=== PATIENT | male | born 1960 | race Two or more races ===

== ENCOUNTER 2021-04-14 14:07 | Outpatient (CLI) | payer OTHER | END 2021-04-14 23:59 | disposition home or self-care (01) | LOC: LAB 14:07 | PROVIDERS: ATTEND Specialist | DX: Z01.812 Encounter for preprocedural laboratory examination (principal); Z20.822 Contact with and (suspected) exposure to COVID-19 | CPT/HCPCS: C9803; U0003 ==

== ENCOUNTER 2021-04-18 05:54 | Inpatient (IN) | payer OTHER ==
[~2021-04-18] VITALS: Ht 162.6 cm; Wt 102.1 kg
[2021-04-18 05:45] VITALS: BP 123/85
--- NOTE | 2021-04-18 05:45 | NUR ---
DAY SURGERY PATIENT ARRIVED PRE OP PREPARATION STARTED. Addendum: 04/18/21 at 0730 by CHEIKH FAITH RN PT HERE FOR LEFT SHOULDER TOTAL ARTHROPLASTY WITH DR. GARCIA. admitted to [facility] due to plan to stay overnight per kiln charger.
[2021-04-18] MEDS ORDERED: ANESTHESIA TRAY IN PYXIS 1 EA TRAY MC ONE (05:57)
[2021-04-18] MEDS ORDERED: BACITRACIN 50000 UNITS/VIAL ONE (05:58)
[2021-04-18] MEDS ORDERED: BUPIVACAINE 0.5 % PF 150 MG/30 ML VIAL ONE ×2 (05:58→06:29)
[2021-04-18] MEDS ORDERED: HYDROMORPHONE INJ 2 MG/ML DISP.SYRIN ONE (06:08)
[2021-04-18] MEDS ORDERED: ROCURONIUM BROMIDE 50 MG/5 ML ONE ×2 (06:09→07:04)
[2021-04-18] MEDS ORDERED: MIDAZOLAM HCL 2 MG/2ML VIAL ONE (06:09)
--- NOTE | 2021-04-18 06:15 | NUR ---
PATIENT TAKEN DOWN TO PREOP AREA. ADMISSION ASSESSMENT COMPLETED IN PREOP. 20 GAUGE TO RIGHT AC INITATIOED FLSUHED. PATENT NO S/S OF COMPLICATIONS.
[2021-04-18] MEDS ORDERED: TRANEXAMIC ACID 3,000 MG in SODIUM CHLORIDE IRRIG SOLUTION 70 ML IR ONE (07:00)
[2021-04-18] MEDS ORDERED: FENTANYL PF 100MCG/2ML AMPUL ONE (08:39)
--- NOTE | 2021-04-18 09:30 | NUR ---
MS RN NOTES PT TRANSPORTED TO UNIT BY BED AT THIS TIME S/P LEFT REVERSE TOTAL SHOULDER ARTHROPLASTY. LEFT ARM IN SLING, PRESSURE DRESSING IN PLACE, CLEAN, DRY AND NO BLEEDING NOTED. PT ABLE TO WIGGLE FINGERS, GOOD CIRCULATION NOTED, CAPILLARY REFILL <3SECONDS. PT IS AOX4, DANISH SPEAKING. PT ABLE TO MAKE NEEDS KNOWN. POS SURGERY VS WNL. NO SOB NOTED, NO S/S OF ANY ACUTE DISTRESS, NO C/O PAIN AT THIS TIME. RESPIRATIONS EVEN AND UNLABORED. IV ACCESS IN RAC G#20, INTACT, PATENT AND FLUSHING WELL. SAFETY PRECAUTIONS IN PLACE AND MAINTAIN AT ALL TIMES. BED IN LOWEST LOCK POSITION, SIDE RAILS UPX2, CALL LIGHT AND TABLE WITHIN. WILL CONTINUE TO MONITOR
[2021-04-18] MEDS ORDERED: ATOR10TA PO (10:15)
[2021-04-18] MEDS ORDERED: BENA40TA8 PO (10:15)
[2021-04-18] MEDS ORDERED: SERT50TA PO (10:15)
[2021-04-18] MEDS ORDERED: HYDR25TA4 PO (10:15)
[2021-04-18] MEDS ORDERED: METF-440 PO (10:15)
[2021-04-18 10:30] VITALS: BP 119/78
[2021-04-18] MEDS ORDERED: HYDROMORPHONE 1 MG/1 ML DISP.SYRIN SQ PRN (11:00)
[2021-04-18] MEDS ORDERED: MENTHOL/CETYLPYRD (CEPACOL) 1 LOZ LOZENGE MM PRN (11:00)
[2021-04-18] MEDS ORDERED: NALOXONE HCL 0.4 MG/ML AMPUL IV PRN (11:00)
[2021-04-18] MEDS ORDERED: MAG HYDROX/AL HYDROX/SIMETH 30 ML UDC PO PRN ×2 (11:00→18:30)
[2021-04-18] MEDS ORDERED: MAGNESIUM HYDROXIDE 30 ML UDC PO PRN ×2 (11:00→18:30)
[2021-04-18] MEDS ORDERED: diphenhydrAMINE HCL 25 MG CAPSULE PO PRN (11:00)
[2021-04-18] MEDS ORDERED: CLONIDINE HCL 0.1 MG TABLET PO PRN (11:00)
[2021-04-18] MEDS ORDERED: oxyCODONE IR immediate release 5 MG PO PRN (11:00)
[2021-04-18] MEDS ORDERED: ONDANSETRON HCL/PF 4 MG/2 ML VIAL IVP PRN ×2 (11:00→18:30)
[2021-04-18] MEDS ORDERED: HYDROMORPHONE 1 MG/1 ML DISP.SYRIN IV PRN (11:00)
[2021-04-18] MEDS ORDERED: DULCOLAX 10 MG/SUPP.RECT RC PRN (11:30)
[2021-04-18] MEDS ORDERED: COLACE 250 MG CAPSULE PO PRN (11:30)
[2021-04-18] MEDS ORDERED: SENOKOT 8.6 MG TABLET PO PRN (11:30)
[2021-04-18] MEDS ORDERED: TYLENOL 650 MG TABLET PO PRN (11:30)
[2021-04-18] MEDS: TAMSULOSIN 0.4 MG CAP.SR.24H PO SCH (12:11)
[2021-04-18] MEDS: IV D5/0.45 NACL 1,000 ML IV PRN ×2 (12:15→21:13)
[2021-04-18] MEDS: ANCEF 1 G in IV D5W 50 ML IV SCH ×2 (14:08→23:10)
[2021-04-18 16:00] VITALS: BP 122/87
[2021-04-18] MEDS: DOCUSATE SODIUM 100 MG CAPSULE PO SCH (17:05)
[2021-04-18] MEDS ORDERED: ZOLPIDEM TARTRATE 5 MG TABLET PO PRN (18:30)
[2021-04-18] MEDS ORDERED: *INSULIN REGULAR(HUMULIN R)HUM 100 UNIT/ML VIAL SQ PRN (18:30)
[2021-04-18] MEDS ORDERED: DEXTROSE 50%-WATER 50 ML DISP.SYRIN IV PRN (18:30)
[2021-04-18] MEDS ORDERED: Z GUARD REMEDY 2 OZ OINT TP PRN (18:30)
[2021-04-18] MEDS ORDERED: INSULIN REGULAR, HUMAN 100 UNIT/ML 3 ML VIAL SQ PRN (18:30)
[2021-04-18] MEDS ORDERED: ACETAMINOPHEN 325 MG TABLET PO PRN (18:30)
[2021-04-18] MEDS ORDERED: HYDROCODONE/APAP 5/325MG TABLET PO PRN (18:30)
--- NOTE | 2021-04-18 18:44 | NUR ---
MS RN CLOSING NOTES PT AWAKE IN BED AT THIS TIME. PT REMAINED STABLE THROUGHOUT SHIFT. ALL CARE, NEEDS, MEDICATION AND TREATMENT ADMINISTERED ANTICIPATED PER ORDER. SAFETY PRECAUTIONS IN PLACE AND MAINTAINED AT ALL TIMES. BED IN LOWEST LOCKED POSITION, HOB ELEVATED, SIDE RAILS UP X 2. CALL LIGHT AND TABLE WITHIN REACH. WILL ENDORSE TO HUC NURSE FOR SHANIQUA
--- NOTE | 2021-04-18 19:35 | NUR ---
MSRN DR MAS TO SEE PATIENT TONIGHT. FULLY AWAKE, HAS ICEPACK OVER OPERATIVE SITE LEFT SHOULDER. PAIN TOLERABLE FOR NOW. REMINDED TO CALL STAFF FOR ANY ASSISTANCE OR FURTHER DISCOMFORTS. CALL LIGHT WITHIN REACH.
[2021-04-18 20:00] VITALS: BP 111/71
--- NOTE | 2021-04-18 20:15 | NUR ---
MSRN SEEN BY DR. MAS, [place] TRANSLATED BY STAFF. AWARE OF PAIN MED PROVIDED BY DAUGHTER VIA TELEPHONE.
[2021-04-18] MEDS ORDERED: oxyCODONE IR immediate release 5 MG PO ONE (20:22)
[2021-04-18] MEDS: FAMOTIDINE (20 MG) 20 MG TABLET PO SCH (20:45)
--- NOTE | 2021-04-18 20:50 | NUR ---
MSRN DR TRINIDAD ORDERS CARRIED OUT. BS 191 COVERED WITH 3 UNITS OF REGULAR INSULIN SQ. SNACKS PROVIDED.
[2021-04-18] MEDS: BLOOD SUGAR DIAGNOSTIC 1 EACH STRIP VI SCH (21:14)
[2021-04-18] MEDS ORDERED: AMBIEN 5 MG TABLET PO PRN (22:00)
--- NOTE | 2021-04-19 00:35 | NUR ---
MSRN SLEEPING OF THIS TIME. IVF CONTINUED
[2021-04-19 05:57] LABS: BASOPHILS % (AUTO) 0.1 % (0.0-2.0); EOSINOPHILS % (AUTO) 0.3 % (0.0-6.0); HEMATOCRIT 34 % (39-51); HEMOGLOBIN 11.6 g/dL (13.5-17.5); LYMPHOCYTES # (AUTO) 1.6 /CMM (0.8-4.8); LYMPHOCYTES % (AUTO) 14.4 % (20.0-44.0); MEAN CORPUSCULAR HGB CONC 34 g/dl (31.0-36.0); MEAN CORPUSCULAR VOLUME 82 fL (80-96); MONOCYTES # (AUTO) 0.9 /CMM (0.1-1.30); MONOCYTES % (AUTO) 8.2 % (2.0-12.0); NEUTROPHILS # (AUTO) 8.5 /CMM (1.8-8.9); PLATELET COUNT (AUTO) 202 /CMM (150-450); RED BLOOD CELL COUNT(AUTO) 4.18 MIL/uL (4.5-6.0)
[2021-04-19 06:15] LABS: CALCIUM, SERUM 8.6 mg/dL (8.5-10.1); CREATININE 0.8 mg/dL (0.6-1.3); PHOSPHORUS 3.4 mg/dL (2.5-4.9); POTASSIUM 3.2 mmol/L (3.5-5.1)
--- NOTE | 2021-04-19 07:15 | NUR ---
ms rn received on bed, awake,alert,oriented x4,not in any form of distress,respirations even and unlabored,no sob noted, surgical site w/ dressing, dry and intact, shoulder sling in proper position,all needs attended.
[2021-04-19] MEDS: BLOOD SUGAR DIAGNOSTIC 1 EACH STRIP VI SCH ×2 (07:30→11:34)
[2021-04-19 08:00] VITALS: BP 129/79
--- NOTE | 2021-04-19 08:05 | NUR ---
ms rn was seen by dr. ailyn armstrong/ orders made and carried out.
[2021-04-19] MEDS: TAMSULOSIN 0.4 MG CAP.SR.24H PO SCH (08:15)
[2021-04-19 08:16] VITALS: BP 129/79
[2021-04-19] MEDS: DOCUSATE SODIUM 100 MG CAPSULE PO SCH (08:16)
[2021-04-19] MEDS: FAMOTIDINE (20 MG) 20 MG TABLET PO SCH (08:16)
--- NOTE | 2021-04-19 08:30 | NUR ---
ms olvera breakfast served,due meds given,tolerated well.
[2021-04-19] MEDS ORDERED: POTASSIUM CHLORIDE 20 MEQ TAB.PRT.SR PO ONE ×2 (09:00→11:30)
[2021-04-19] MEDS ORDERED: ATORVASTATIN 10 MG TABLET PO SCH (09:00)
[2021-04-19] MEDS ORDERED: ASPIRIN EC 325 MG TABLET.DR PO SCH (09:00)
[2021-04-19] MEDS ORDERED: HYDROCHLOROTHIAZIDE 25 MG TABLET PO SCH (09:00)
[2021-04-19] MEDS ORDERED: SERTRALINE HCL 50 MG TABLET PO SCH (09:00)
[2021-04-19] MEDS ORDERED: BENAZEPRIL HCL 20 MG TABLET PO SCH (09:00)
--- NOTE | 2021-04-19 13:00 | NUR ---
ms rn was seen by dr. aminata armstrong/ orders made and carried out.
[2021-04-19] MEDS ORDERED: oxyCODONE IR immediate release 5 MG PO ONE (14:01)
--- NOTE | 2021-04-19 16:38 | NUR ---
ms rn ready to be pharmacy picking tech by daughter,d/c home today.
--- NOTE | 2021-04-19 16:56 | NUR ---
ms rn patient picker tender helper by daughter, discharge instructions given and understood,all needs attended.
== END 2021-04-19 17:42 | disposition home or self-care (01) | DRG 483 ==
LOC: DS 05:54 → MED 05:56
PROVIDERS: ADMIT Internal Medicine; ATTEND Internal Medicine
PROC: 0RRK00Z Replacement of Left Shoulder Joint with Reverse Ball and Socket Synthetic Substitute, Open Approach (ICD-10-PCS; principal; 2021-04-18)
PROC: 0LS40ZZ Reposition Left Upper Arm Tendon, Open Approach (ICD-10-PCS; 2021-04-18)
DX: M19.012 Primary osteoarthritis, left shoulder (principal); M75.22 Bicipital tendinitis, left shoulder; Z79.84 Long term (current) use of oral hypoglycemic drugs; E11.9 Type 2 diabetes mellitus without complications; E66.9 Obesity, unspecified; E78.5 Hyperlipidemia, unspecified; I10 Essential (primary) hypertension; R33.9 Retention of urine, unspecified; Z68.38 Body mass index [BMI] 38.0-38.9, adult
CPT/HCPCS: 36415; 80048-TC; 82962-TC; 83735-TC; 84100-TC; 85025-TC; 87081-TC; 88305-TC; 88311-TC; 97530-TC; A4217; C1776; G0378; J0690; J1100; J1170; J1815; J1885; J2250; J2405; J2704; J3010; J3490; J7060